=== PATIENT | female | born 1995 | race African-American/Black ===

== ENCOUNTER 2019-08-02 13:36 | Emergency (ER) | payer SELFPAY ==
[2019-08-02] MEDS ORDERED: Alum Hydrox/Mag Hydrox/Simeth 30 ML, Lidocaine 2% 15 ML PO ONE ×2 (14:16)
[2019-08-02] MEDS ORDERED: Sodium Chloride 0.9% 1,000 ML IV ONE (14:16)
--- NOTE | 2019-08-02 14:24 | EDM.PDOC ---
ED HPI GENERAL MEDICAL PROBLEM - General Chief Complaint: Abdominal Pain Stated Complaint: [facility] Time Seen by Provider: 08/02/19 14:04 Source of Information: Reports: Patient, RN Notes Reviewed History Limitations: Reports: No Limitations - History of Present Illness INITIAL COMMENTS - FREE TEXT/NARRATIVE: Patient is a 23-year-old female who presents to the ED via [facility] ambulance for the evaluation of upper abdominal pain. The patient states that around 7:30 this morning she woke up, went to the bathroom and then laid back down and developed some severe epigastric and right upper quadrant pain. The patient states that the pain goes up the esophagus and is kind of a burning pain in nature with a crampy type component. She notes this does radiate to her back. Patient states she did drink some tea and took some Aleve and the pain got better for a little while but then came straight back. Patient notes she did have one episode of vomiting, and 3 very soft BMs this morning. Patient denies any sort of abdominal surgeries, any fevers or chills, any chest pain, or shortness of breath. Patient does not think she could be , she states that she had her LMP was last . Patient states she feels as if she needs to burp or belch. She characterizes that she likes to eat spicy foods, however her last meal last night consisted of macaroni and cheese, fried chicken and some possibly milk products. Patient has not had any food to eat this morning at all. The patient was given 1 dose of Zofran in the ambulance, and this did help decrease the amount of pain in the patient's stomach. Patient would rate her pain at a 6 out of 10 today. Upper Abdomen Pain Score (Numeric/FACES): 6 - Related Data Allergies Allergy/AdvReac Type Severity Reaction Status Date / Time No Known Allergies Allergy Verified 08/02/19 13:49 Home Meds: Home Meds Ondansetron [Zofran ODT] 4 mg PO Q8H PRN #15 tab.dis 08/02/19 [Rx] Past Medical History - Past Health History Medical/Surgical History: Denies Medical/Surgical History Social & Family History - Tobacco Use Smoking Status *Q: Never Smoker - Caffeine Use Caffeine Use: Reports: Coffee, Soda, Tea - Recreational Drug Use Recreational Drug Use: No ED ROS GENERAL - Review of Systems Review Of Systems: See Below Constitutional: Denies: Fever, Chills HEENT: Reports: No Symptoms Respiratory: Denies: Shortness of Breath Cardiovascular: Denies: Chest Pain Endocrine: Reports: No Symptoms GI/Abdominal: Reports: Abdominal Pain (epigastric/RUQ), Diarrhea (3 soft stools this AM), Nausea, Vomiting : Denies: Dysuria Musculoskeletal: Reports: Back Pain Skin: Reports: No Symptoms Neurological: Reports: No Symptoms Psychiatric: Reports: No Symptoms Hematologic/Lymphatic: Reports: No Symptoms Immunologic: Reports: No Symptoms ED EXAM, GI/ABD - Physical Exam Exam: See Below Exam Limited By: No Limitations General Appearance: Alert, WD/WN, No Apparent Distress Eyes: Bilateral: Normal Appearance Ears: Normal External Exam Throat/Mouth: Normal Inspection, Normal Lips, Normal Teeth, Normal Gums, Normal Oropharynx, Normal Voice, No Airway Compromise Head: Atraumatic, Normocephalic Neck: Normal Inspection, Supple, Non-Tender, Full Range of Motion Respiratory/Chest: No Respiratory Distress, Lungs Clear, Normal Breath Sounds, No Accessory Muscle Use, Chest Non-Tender Cardiovascular: Normal Peripheral Pulses, Regular Rate, Rhythm, No Murmur GI/Abdominal Exam: Normal Bowel Sounds, Soft, No Distention, No Mass, Tender ( epigastrium and RUQ mainly) Extremities: Normal Inspection, Normal Capillary Refill Neurological: Alert, Oriented, Normal Cognition, No Motor/Sensory Deficits Psychiatric: Normal Affect, Normal Mood Skin Exam: Warm, Dry, Intact, Normal Color, No Rash Course - Vital Signs Last Recorded V/S: Last Vital Signs Temp 97.3 F 08/02/19 13:47 Pulse 98 08/02/19 13:47 Resp 20 08/02/19 13:47 BP 138/75 08/02/19 13:47 Pulse Ox 100 08/02/19 13:47 - Orders/Labs/Meds Labs: Laboratory Tests 08/02/19 08/02/19 08/02/19 Range/Units 14:36 14:36 14:36 WBC 12.83 H (3.98-10.04) K/mm3 RBC 5.41 H (3.98-5.22) M/mm3 Hgb 15.2 (11.2-15.7) gm/dl Hct 45.9 H (34.1-44.9) % MCV 84.8 (79.4-94.8) fl MCH 28.1 (25.6-32.2) pg MCHC 33.1 (32.2-35.5) g/dl RDW Std Deviation 44.1 (36.4-46.3) fL Plt Count 285 (182-369) K/mm3 MPV 9.9 (9.4-12.3) fl Neut % (Auto) 90.4 H (34.0-71.1) % Lymph % (Auto) 2.8 L (19.3-51.7) % Cooke % (Auto) 6.1 (4.7-12.5) % Eos % (Auto) 0.2 L (0.7-5.8) Baso % (Auto) 0.2 (0.1-1.2) % Neut # (Auto) 11.60 H (1.56-6.13) K/mm3 Lymph # (Auto) 0.36 L (1.18-3.74) K/mm3 Cooke # (Auto) 0.78 H (0.24-0.36) K/mm3 Eos # (Auto) 0.03 L (0.04-0.36) K/mm3 Baso # (Auto) 0.02 (0.01-0.08) K/mm3 Manual Slide Review Abnormal smear Sodium 138 (136-145) mEq/L Potassium 3.5 (3.5-5.1) mEq/L Chloride 104 (98-107) mEq/L Carbon Dioxide 23 (21-32) mEq/L Anion Gap 14.5 (5-15) BUN 9 (7-18) mg/dL Creatinine 0.7 (0.55-1.02) mg/dL Est Cr Clr Drug Dosing 94.32 mL/min Estimated GFR (MDRD) > 60 (>60) mL/min BUN/Creatinine Ratio 12.9 L (14-18) Glucose 124 H (74-106) mg/dL Calcium 9.4 (8.5-10.1) mg/dL Total Bilirubin 1.2 H (0.2-1.0) mg/dL GGT 188 H (5-55) U/L AST 407 H (15-37) U/L ALT 295 H (14-59) U/L Alkaline Phosphatase 91 (46-116) U/L Total Protein 8.5 H (6.4-8.2) g/dl Albumin 4.7 (3.4-5.0) g/dl Globulin 3.8 gm/dL Albumin/Globulin Ratio 1.2 (1-2) Lipase 54 L (73-393) U/L HCG, Qual Negative (NEGATIVE) Urine Color (Yellow) Urine Appearance (Clear) Urine pH (5.0-8.0) Ur Specific [place] (1.005-1.030) Urine Protein (Negative) Urine Glucose (UA) (Negative) Urine Ketones (Negative) Urine Occult Blood (Negative) Urine Nitrite (Negative) Urine Bilirubin (Negative) Urine Urobilinogen (0.2-1.0) Ur Leukocyte Esterase (Negative) Urine RBC (0-5) /hpf Urine WBC (0-5) /hpf Ur Squamous Epith Cells (0-5) /hpf Urine Bacteria (FEW) /hpf Urine Mucus (FEW) /hpf 08/02/19 Range/Units 14:40 WBC (3.98-10.04) K/mm3 RBC (3.98-5.22) M/mm3 Hgb (11.2-15.7) gm/dl Hct (34.1-44.9) % MCV (79.4-94.8) fl MCH (25.6-32.2) pg MCHC (32.2-35.5) g/dl RDW Std Deviation (36.4-46.3) fL Plt Count (182-369) K/mm3 MPV (9.4-12.3) fl Neut % (Auto) (34.0-71.1) % Lymph % (Auto) (19.3-51.7) % Cooke % (Auto) (4.7-12.5) % Eos % (Auto) (0.7-5.8) Baso % (Auto) (0.1-1.2) % Neut # (Auto) (1.56-6.13) K/mm3 Lymph # (Auto) (1.18-3.74) K/mm3 Cooke # (Auto) (0.24-0.36) K/mm3 Eos # (Auto) (0.04-0.36) K/mm3 Baso # (Auto) (0.01-0.08) K/mm3 Manual Slide Review Sodium (136-145) mEq/L Potassium (3.5-5.1) mEq/L Chloride (98-107) mEq/L Carbon Dioxide (21-32) mEq/L Anion Gap (5-15) BUN (7-18) mg/dL Creatinine (0.55-1.02) mg/dL Est Cr Clr Drug Dosing mL/min Estimated GFR (MDRD) (>60) mL/min BUN/Creatinine Ratio (14-18) Glucose (74-106) mg/dL Calcium (8.5-10.1) mg/dL Total Bilirubin (0.2-1.0) mg/dL GGT (5-55) U/L AST (15-37) U/L ALT (14-59) U/L Alkaline Phosphatase (46-116) U/L Total Protein (6.4-8.2) g/dl Albumin (3.4-5.0) g/dl Globulin gm/dL Albumin/Globulin Ratio (1-2) Lipase (73-393) U/L HCG, Qual (NEGATIVE) Urine Color Yellow (Yellow) Urine Appearance Clear (Clear) Urine pH 7.5 (5.0-8.0) Ur Specific Melrose 1.020 (1.005-1.030) Urine Protein Negative (Negative) Urine Glucose (UA) Negative (Negative) Urine Ketones Negative (Negative) Urine Occult Blood Trace-intact H (Negative) Urine Nitrite Negative (Negative) Urine Bilirubin Negative (Negative) Urine Urobilinogen 0.2 (0.2-1.0) Ur Leukocyte Esterase Trace H (Negative) Urine RBC 0-5 (0-5) /hpf Urine WBC 0-5 (0-5) /hpf Ur Squamous Epith Cells 0-5 (0-5) /hpf Urine Bacteria Rare (FEW) /hpf Urine Mucus Rare (FEW) /hpf Meds: Medications Discontinued Medications Generic Name Dose Route Start Last Admin Trade Name Freq PRN Reason Stop Dose Admin Al Hydroxide/Mg Hydroxide 30 0 ml 08/02/19 14:16 08/02/19 14:41 ml/ Lidocaine HCl 15 ml PO 08/02/19 14:17 45 ml ONETIME ONE Administration Sodium Chloride 1,000 mls @ 500 mls/hr 08/02/19 14:16 08/02/19 14:40 Normal Saline IV 08/02/19 16:15 500 mls/hr ONETIME ONE Administration - Re-Assessments/Exams Free Text/Narrative Re-Assessment/Exam: 08/02/19 14:25 Patient presents to the ED for evaluation of epigastric and right upper quadrant abdominal pain. I did order lab work to include a CBC, CMP, GGT, and a lipase, hCG, and a urinalysis, a GI cocktail, some IV fluids, and a gallbladder ultrasound to evaluate possible gallbladder etiology of her pain. 08/02/19 16:27 Gallbladder ultrasound is back, and demonstrates mild hydronephrosis of the right kidney. Uncertain as to etiology. Please correlate of patient's symptoms warrant further imaging, but other findings are unremarkable. The patient's laboratory evaluations demonstrate patient's white blood cell count is elevated at 12.8 with 90% neutrophil count, increased AST and ALT, GGT, and bilirubin, UA had trace blood and trace leukocyte esterase. Patient's lab and imaging results were reviewed with Dr. Santana, he suggests doing a CT to evaluate for a possible kidney stone due to the right-sided hydronephrosis. An abdominal pelvis CT without contrast was ordered at this time to further delineate whether or not the patient has a kidney stone. 08/02/19 18:[address] without contrast is done, and identifies a 5.7 cm cyst in the left side of the pelvis, which is most likely ovarian in nature recommend a follow- up pelvic ultrasound in 3-4 months. No ureteral dilatation or ureteral stone is seen findings on the previous upper abdominal ultrasound are likely incidental. No additional abnormality is seen on noncontrast CT of the abdomen and pelvis performed as ureteral stone protocol. The radiologist states that he did see the appendix, and felt this to be within normal limits, and no free fluid or inflammatory changes seen in the abdomen CT. There are no visual abnormalities noted of the liver. The patient did state that she received some relief from the GI cocktail she received beginning of the visit. At this time there is no obvious etiology as to why the liver enzymes, and GGT would have been elevated as the ultrasound was within normal limits, and the CT demonstrates only a left-sided pelvic cyst which should not be causing her pain in the upper abdomen. At this time, I will send her home with some tablets of Zofran and other general recommendations and have her schedule a clinic visit to make sure she gets her liver enzymes re-drawn to check to see if they have came down to a normal level. Will give recommendation to get the pelvic US in 3- 4 months time. Departure - Departure Time of Disposition: 18:09 Disposition: Home, Self-Care 01 Condition: Fair Clinical Impression: Upper abdominal pain Ovarian cyst Qualifiers: Laterality: left Qualified Code(s): N83.202 - Unspecified ovarian cyst, left side - Discharge Information *PRESCRIPTION DRUG MONITORING PROGRAM REVIEWED*: No *COPY OF PRESCRIPTION DRUG MONITORING REPORT IN PATIENT KELLIE: No Prescriptions: Ondansetron [Zofran ODT] 4 mg PO Q8H PRN #15 tab.dis PRN Reason: Nausea Instructions: Abdominal Pain, Adult, [id number], Ovarian Cyst, [id number] Referrals: PCP,None [Primary Care Provider] - Forms: ED Department Discharge Additional Instructions: You were evaluated in the ED today for your abdominal pain. Your laboratory evaluation demonstrated that your liver enzymes were slightly elevated, this sometimes can be a normal abnormal finding, recommend that you follow up with a primary care provider of your choosing and have your liver enzymes re-checked in 1-2 weeks' time to make sure that they are returning to normal. Our clinic number is [phone], the [place] clinic number is , please schedule an appointment at your earliest convenience to have these levels rechecked. Your gallbladder ultrasound, and abdominal CT were both within normal limits. Your abdominal CT demonstrated a 5.7 cm left pelvic cyst which is most likely an ovarian cyst in nature. Radiologist recommends that you get a follow-up pelvic ultrasound done in about 3-4 months time to monitor this cyst. This cyst should not be causing the pain you were experiencing at today's ED visit. You will need to establish with [facility] and have them order this test you can follow up with them for management. Again, Our [facility] clinic number is [phone], the [place] clinic number is [phone]. You were given a prescription for Zofran, please take one tab dissolvable under your tongue every 8 hours as needed for feelings of nausea. Recommend that you start a medication called omeprazole (Prilosec), this is an [id number] medication, which will help regulate the acid in your stomach. Please try to keep to a clear liquid diet for the next 24-48 hours and advance to a bland diet as tolerated, try to avoid foods in this timeframe. Please return to the ED if her symptoms should change or worsen.
--- NOTE | 2019-08-02 16:10 | US ---
Limited abdominal ultrasound: Multiple real-time images of the upper right abdomen were obtained. Liver shows no focal parenchymal abnormality. Pancreas appears within normal limits. Gallbladder contains no shadowing gallstones. No gallbladder wall thickening or biliary duct dilatation is seen. Collecting system of the right kidney is mildly prominent. Right kidney shows no additional abnormality. Right kidney length is 10.7 cm. Inferior vena cava is patent. Portal vein shows normal hepatopedal flow. Impression: 1. Mild hydronephrosis of the right kidney. Uncertain as to etiology. Please correlate if patient's symptoms warrant further imaging. 2. Other portions of the right upper quadrant abdominal ultrasound are unremarkable. Diagnostic code #3
--- NOTE | 2019-08-02 17:40 | CT ---
CT abdomen and pelvis Technique: Multiple axial sections were obtained from above the kidneys inferiorly through the pubic symphysis. Intravenous and oral contrast was not utilized. Study has been performed as a ureteral stone protocol. Findings: No ureteral dilatation or ureteral stone is seen. Calcification is seen within the lower left pelvis believed not to represent a ureteral stone since no left ureteral dilatation is seen. Cyst is noted within the left side of the pelvis measuring 5.7 cm. This presumably represents a large ovarian cyst. No additional pelvic abnormality is seen. No free fluid or inflammatory change is seen. Appendix is felt to be visualized and is normal in size. Visualized lung bases are clear. Noncontrast appearance of the visualized liver and spleen shows no discrete abnormality. Gallbladder contains no calcified gallstones. Pancreas that is seen appears within normal limits. Adrenal glands show no discrete nodule. Aorta shows no aneurysm. No retroperitoneal adenopathy is seen. Bone window settings were reviewed which appear within normal limits for the patient's age. Impression: 1. 5.7 cm cyst within the left side of the pelvis most likely ovarian. Follow-up pelvic ultrasound is recommended in 3-4 months. 2. No ureteral dilatation or ureteral stone is seen. Findings on previous upper abdominal ultrasound are likely incidental. 3. No additional abnormality is seen on noncontrast CT study of the abdomen and pelvis performed as a ureteral stone protocol. Diagnostic code #3
== END 2019-08-02 18:37 | disposition home or self-care (01) ==
LOC: JD.ED 13:36
DX: R10.11 Right upper quadrant pain (principal); R10.13 Epigastric pain
CPT/HCPCS: 36415; 74176; 76705; 80053; 81001; 82977; 83690; 84703; 85025; 96360; 96361; 99285; A9270; J7040